=== PATIENT | female | born 1970 | race Caucasian/White ===

== ENCOUNTER → 2019-11-02 | Outpatient (CLI) | payer OTHER ==
[~2019-11-02] MED LIST: DHEA PO; Flomax0.4 MG PO; METF500 PO; Norco 5-325 Ta1 EACH PO; SERT100 PO
[2019-11-02 14:06] LABS: Alanine Aminotransfer (ALT/SGP 29 U/L (12-78); Albumin, Blood 3.7 g/dL (3.4-5.0); Albumin/Globulin Ratio 0.9 (0.8-1.8); Alk Phos 75 U/L (40-126); Anion Gap 6 mmol/L (6-16); Aspartate Aminotrans (AST/SGOT 20 U/L (12-37); Bilirubin, Total 0.2 mg/dL (0.1-1.0); Blood Urea Nitrogen 10 mg/dL (8-24); Bun/Creatinine Ratio 15.2 (12.0-20.0); CO2, Blood 28 mmol/L (21-32); Calcium, Blood 8.7 mg/dL (8.5-10.1); Chloride, Blood 105 mmol/L (98-108); Creatinine, Blood 0.66 mg/dL (0.40-1.00); Glomerular Filtration Rate >60 (60-); Glucose, Blood 91 mg/dL (70-99); Potassium, Blood 3.8 mmol/L (3.5-5.5); Sodium, Blood 139 mmol/L (136-145); Total Protein, Blood 7.7 g/dL (6.4-8.2)
== END | disposition home or self-care (01) ==
LOC: LAB SHORT 13:50 → LAB EV 13:50
PROVIDERS: Physician Assistant
DX: N20.0 Calculus of kidney (principal)
CPT/HCPCS: 80053

== ENCOUNTER 2019-12-01 18:59 | Emergency (ER) | payer OTHER ==
[~2019-12-01] VITALS: Ht 149.9 cm; Wt 74.8 kg
[2019-12-01 20:08] LABS: BASOPHILS ABSOLUTE AUTO 0.04 K/mm3 (0.00-0.23); BASOPHILS PERCENT AUTO 1 % (0-2); EOSINOPHILS ABSOLUTE AUTO 0.24 K/mm3 (0.00-0.68); EOSINOPHILS PERCENT AUTO 3 % (0-6); Hemoglobin 14.2 g/dL (11.5-16.0); IMMATURE GRAN ABSOLUTE AUTO 0.03 K/mm3 (0.00-0.10); IMMATURE GRAN PERCENT AUTO 0 % (0-1); LYMPHOCYTES ABSOLUTE AUTO 2.28 K/mm3 (0.84-5.20); LYMPHOCYTES PERCENT AUTO 27 % (21-46); MONOCYTES ABSOLUTE AUTO 0.57 K/mm3 (0.16-1.47); MONOCYTES PERCENT AUTO 7 % (4-13); Mean Corpuscular HGB 31.3 pg (26.0-34.0); Mean Corpuscular HGB Conc 33.8 g/dL (31.5-36.5); Mean Corpuscular Volume 93 fL (80-100); NEUTROPHILS ABSOLUTE AUTO 5.26 K/mm3 (1.96-9.15); NEUTROPHILS PERCENT AUTO 62 % (41-73); Platelet Count 291 K/mm3 (150-400); RDW Coefficient Variation 11.7 % (11.7-14.2); RDW Standard Deviation 39.8 fL (35.1-46.3); Red Blood Cell Count 4.53 M/mm3 (3.80-5.20); White Blood Cell Count 8.42 K/mm3 (4.00-11.30)
[2019-12-01 20:30] LABS: Alanine Aminotransfer (ALT/SGP 30 U/L (12-78); Albumin, Blood 4.2 g/dL (3.4-5.0); Alk Phos 81 U/L (50-136); Anion Gap 6 mmol/L (6-16); Aspartate Aminotrans (AST/SGOT 16 U/L (12-37); Bilirubin, Total 0.4 mg/dL (0.1-1.0); Blood Urea Nitrogen 12 mg/dL (8-24); Bun/Creatinine Ratio 14.3 (12.0-20.0); CO2, Blood 26 mmol/L (21-32); Calcium, Blood 9.2 mg/dL (8.5-10.1); Chloride, Blood 106 mmol/L (98-108); Creatinine, Blood 0.84 mg/dL (0.40-1.00); Globulin, Blood 4.2 g/dL (2.2-4.0); Glomerular Filtration Rate >60 (60-); Glucose, Blood 92 mg/dL (70-99); Potassium, Blood 4.2 mmol/L (3.5-5.5); Sodium, Blood 138 mmol/L (136-145); Total Protein, Blood 8.4 g/dL (6.4-8.2)
[2019-12-01 21:11] LABS: Source, Urine Clean Catch
[2019-12-01 21:17] LABS: Bilirubin, Urine Neg (Neg); Blood, Urine 5+ (Neg); Glucose Qualitative, Urine Neg (Neg); Ketones, Urine Neg (Neg); Leukocyte Esterase, Urine Neg (Neg); Nitrite, Urine Neg (Neg); Protein, Urine 2+ (Neg); Urobilinogen, Urine NORM (Normal)
[2019-12-01 21:22] LABS: Color, Urine Yellow (P-Yellow)
[2019-12-01 21:24] LABS: Appearance, Urine Hazy (Clear); Bacteria Few /hpf; Red Blood Cells, Urine TNTC /hpf (0-2); Squamous Epithelial Cells Mod /hpf (Few); White Blood Cells, Urine 0-2 /hpf (0-5)
== END 2019-12-02 02:00 | disposition home or self-care (01) ==
LOC: ER 18:59
PROVIDERS: Physician Assistant
DX: N13.1 Hydronephrosis with ureteral stricture, not elsewhere classified (principal); N23 Unspecified renal colic
CPT/HCPCS: 36415; 76770; 80053; 81001; 81025; 83690; 85025; 96374; 96375; 99284-25; J1170; J1885; J2405

== ENCOUNTER 2020-05-26 20:43 | Observation (INO) | payer OTHER ==
[~2020-05-26] VITALS: Ht 149.9 cm; Wt 75.0 kg
[2020-05-26 21:21] LABS: BASOPHILS ABSOLUTE AUTO 0.04 K/mm3 (0.00-0.23); BASOPHILS PERCENT AUTO 0 % (0-2); EOSINOPHILS ABSOLUTE AUTO 0.08 K/mm3 (0.00-0.68); EOSINOPHILS PERCENT AUTO 1 % (0-6); Hematocrit 43.2 % (33.0-51.0); Hemoglobin 14.5 g/dL (11.5-16.0); IMMATURE GRAN ABSOLUTE AUTO 0.04 K/mm3 (0.00-0.10); IMMATURE GRAN PERCENT AUTO 0 % (0-1); LYMPHOCYTES ABSOLUTE AUTO 2.03 K/mm3 (0.84-5.20); LYMPHOCYTES PERCENT AUTO 21 % (21-46); MONOCYTES ABSOLUTE AUTO 0.47 K/mm3 (0.16-1.47); MONOCYTES PERCENT AUTO 5 % (4-13); Mean Corpuscular HGB 31.7 pg (26.0-34.0); Mean Corpuscular HGB Conc 33.6 g/dL (31.5-36.5); Mean Corpuscular Volume 95 fL (80-100); Mean Platelet Volume 10.1 fL (9.1-12.4); NEUTROPHILS ABSOLUTE AUTO 6.89 K/mm3 (1.96-9.15); NEUTROPHILS PERCENT AUTO 72 % (41-73); Platelet Count 253 K/mm3 (150-400); RDW Coefficient Variation 11.9 % (11.7-14.2); RDW Standard Deviation 41.6 fL (35.1-46.3); Red Blood Cell Count 4.57 M/mm3 (3.80-5.20); White Blood Cell Count 9.55 K/mm3 (4.00-11.30)
[2020-05-26 21:40] LABS: Alanine Aminotransfer (ALT/SGP 29 U/L (12-78); Albumin, Blood 4.1 g/dL (3.4-5.0); Albumin/Globulin Ratio 0.9 (0.8-1.8); Alk Phos 87 U/L (50-136); Anion Gap 5 mmol/L (6-16); Aspartate Aminotrans (AST/SGOT 24 U/L (12-37); Bilirubin, Total 0.3 mg/dL (0.1-1.0); Blood Urea Nitrogen 13 mg/dL (8-24); Bun/Creatinine Ratio 17.5 (12.0-20.0); CO2, Blood 27 mmol/L (21-32); Calcium, Blood 9.3 mg/dL (8.5-10.1); Chloride, Blood 108 mmol/L (98-108); Creatinine, Blood 0.74 mg/dL (0.40-1.00); Globulin, Blood 4.4 g/dL (2.2-4.0); Glomerular Filtration Rate >60 (60-); Glucose, Blood 87 mg/dL (70-99); Potassium, Blood 4.3 mmol/L (3.5-5.5); Sodium, Blood 140 mmol/L (136-145); Total Protein, Blood 8.5 g/dL (6.4-8.2)
--- NOTE | 2020-05-27 06:25 | NUR ---
SHIFT SUMMARY RIB FX/PTX, A/O X4, VSS, WALKS W/ 1 PERSON ASSIST, PAIN WELL CONTROLLED PER EMAR, PT TAKING SHALLOW BREATHS, LUNGS CLEAR, SKIN PINK/WARM/DRY, DISTAL PULSES X4 EXTREMETIES STRONG, CAP REFIL < 3 SECONDS. PT ORIENTED TO ROOM AFTER ARRIVAL @ 0013, SO AT BEDSIDE FOR FIRST HOUR. PT REPORTS MILD NAUSEA, TREATED PER EMAR. SO TO RETURN IN THE MORNING, PT RESTING T/O REMAINING SHIFT. WILL CONTINUE TO MONITOR AND REPORT TO ONCOMING DAY RN.
[2020-05-27] MEDS ORDERED: PROG100 PO (10:32)
[2020-05-27] MEDS ORDERED: CLIMARA1 EACH TOP (10:33)
[2020-05-27] MEDS ORDERED: Adipex-P37.5 MG PO (10:33)
--- NOTE | 2020-05-27 14:31 | NUR ---
PT REPORTED SMALL PIECES OF SEDIMENT/STONES IN URINE HAS HX OF KIDNEY STONES BUT DENIES PAIN ASSOCIATED W/PREVIOUS STONES. STATED LANDED IN [place] SO DOES NOT KNOW IF KIDNEY STONES OR SEDIMENT FROM FALL. WILL CONTINUE TO MONITOR.
--- NOTE | 2020-05-27 18:03 | NUR ---
SUMMARY NO ACUTE CHANGES T/O SHIFT. PT UP TO RESTROOM TO MINIMAL ASSISTANCE. TOLERATING DIET. MEDICATED PER ORDERS T/O SHIFT FOR PAIN. PT HAD REPORTED DID NOT KNOW IF PASSING KIDNEY STONES IN URINE OR HAD SAND IN CLOTHING THAT FELL IN COLLECTION HAT. RN NOTED COUPLE SMALL PIECES OF SEDIMENT; PT DENYING PAIN ASSOCIATED W/KIDNEY STONES. SPOUSE HAS BEEN AT BEDSIDE T/O MOST OF SHIFT. PT CALL APPROPRIATELY. CALL LIGHT IN REACH.
--- NOTE | 2020-05-28 05:24 | NUR ---
SHIFT SUMMARY RIB FX, A/O X4, VSS, TAKING SHALLOW BREATHS, SKIN PINK/WARM/DRY, CAP REFIL < 3 SEC, DENIES SOB, REPORTS INCREASED PAIN ON DEEP INSPIRATION. PAIN WELL CONTROLLED PER EMAR, DENIES N&V/N&T. PT REP FEELING BLOATED, GAVE K PACK TO APPLY HEAT THERAPY TO ABD PRN. PT RESTING COMFORTABLY T/O SHIFT, TOLERATING PO, VOIDING WELL. WILL CONTINUE TO MONITOR AND REPORT TO ONCOMING DAY RN.
[2020-05-28] MEDS ORDERED: HYDR1TAB94 PO (11:00)
--- NOTE | 2020-05-28 11:27 | NUR ---
DISCHARGE PT EDUCATED ON AND RECEIVED PRINTED DISCHARGE INSTRUCTIONS AND VERBALIZED AN UNDERSTANDING. HARD RX FOR [place]CO GIVEN TO PT. IV DC'D. PT LEFT WITH ALL PERSONAL BELONGINGS INCLUDING I/S WITH AT SIDE.
== END 2020-05-28 11:23 | disposition home or self-care (01) ==
LOC: ER 20:43 → SURS 20:44
PROVIDERS: Emergency Medicine; ADMIT Surgery
DX: S27.0XXA Traumatic pneumothorax, initial encounter (principal); S22.42XA Multiple fractures of ribs, left side, initial encounter for closed fracture; V80.010A Animal-rider injured by fall from or being thrown from horse in noncollision accident, initial encounter; Z88.5 Allergy status to narcotic agent
CPT/HCPCS: 36415; 71045; 71046; 71260; 80053; 85025; 96361; 96372; 96374; 96375; 96376; 99285-25; A9270-GY; G0378; J1170; J1650; J1885; J2405; J7120; Q9967

== ENCOUNTER 2020-10-29 01:15 | Emergency (ER) | payer OTHER ==
[~2020-10-29] VITALS: Ht 149.9 cm; Wt 74.8 kg
[~2020-10-29 01:15] MED LIST changes: +Adipex-P37.5 MG PO; +CLIMARA1 EACH TOP; +HYDR1TAB94 PO; +PROG100 PO
[2020-10-29] MEDS ORDERED: HYDR1TAB94 PO (03:16)
[2020-10-29] MEDS ORDERED: Colace250 MG PO (03:16)
[2020-10-29] MEDS ORDERED: AMOCLA875 PO (03:16)
== END 2020-10-29 03:34 | disposition home or self-care (01) ==
LOC: ER 01:15
DX: K04.7 Periapical abscess without sinus (principal); Z79.899 Other long term (current) drug therapy
CPT/HCPCS: 96372; 99282-25; J2270

== ENCOUNTER 2021-01-10 15:10 | Emergency (ER) | payer OTHER ==
[~2021-01-10] VITALS: Ht 149.9 cm; Wt 72.6 kg
[~2021-01-10 15:10] MED LIST changes: -HYDPAM25 PO
[2021-01-10] MEDS ORDERED: HYDPAM25 PO (16:16)
== END 2021-01-10 17:13 | disposition home or self-care (01) ==
LOC: ER 15:10
DX: R51.9 Headache, unspecified (principal); R20.2 Paresthesia of skin; Z88.5 Allergy status to narcotic agent; Z79.899 Other long term (current) drug therapy
CPT/HCPCS: 36415; 99283; A9270

== ENCOUNTER → 2021-01-10 | Outpatient (CLI) | payer OTHER ==
[~2021-01-10] MED LIST changes: +AMOCLA875 PO; +Colace250 MG PO; +HYDPAM25 PO
[2021-01-10 14:42] LABS: BASOPHILS ABSOLUTE AUTO 0.04 K/mm3 (0.00-0.23); BASOPHILS PERCENT AUTO 1 % (0-2); EOSINOPHILS ABSOLUTE AUTO 0.38 K/mm3 (0.00-0.68); EOSINOPHILS PERCENT AUTO 5 % (0-6); Hematocrit 43.1 % (33.0-51.0); Hemoglobin 14.5 g/dL (11.5-16.0); IMMATURE GRAN ABSOLUTE AUTO 0.03 K/mm3 (0.00-0.10); IMMATURE GRAN PERCENT AUTO 0 % (0-1); LYMPHOCYTES PERCENT AUTO 36 % (21-46); MONOCYTES ABSOLUTE AUTO 0.41 K/mm3 (0.16-1.47); MONOCYTES PERCENT AUTO 6 % (4-13); Mean Corpuscular HGB 31.8 pg (26.0-34.0); Mean Corpuscular HGB Conc 33.6 g/dL (31.5-36.5); Mean Corpuscular Volume 95 fL (80-100); Mean Platelet Volume 10.5 fL (9.1-12.4); NEUTROPHILS ABSOLUTE AUTO 3.78 K/mm3 (1.96-9.15); NEUTROPHILS PERCENT AUTO 52 % (41-73); Platelet Count 259 K/mm3 (150-400); RDW Coefficient Variation 12.5 % (11.7-14.2); RDW Standard Deviation 43.4 fL (35.1-46.3); Red Blood Cell Count 4.56 M/mm3 (3.80-5.20); White Blood Cell Count 7.24 K/mm3 (4.00-11.30)
[2021-01-10 14:45] LABS: Anion Gap 8 mmol/L (6-16); Blood Urea Nitrogen 12 mg/dL (8-24); CO2, Blood 28 mmol/L (21-32); Calcium, Blood 8.3 mg/dL (8.5-10.1); Chloride, Blood 104 mmol/L (98-108); Creatinine, Blood 0.75 mg/dL (0.40-1.00); Glomerular Filtration Rate >60 (60-); Glucose, Blood 106 mg/dL (70-99); Potassium, Blood 3.2 mmol/L (3.5-5.5); Sodium, Blood 140 mmol/L (136-145)
== END | disposition home or self-care (01) ==
LOC: LAB SHORT 14:35
PROVIDERS: Family Medicine
DX: R53.83 Other fatigue (principal)
CPT/HCPCS: 80048; 85025; 85651

== ENCOUNTER 2023-04-12 14:53 | Emergency (ER) | payer OTHER ==
[~2023-04-12] VITALS: Ht 149.9 cm; Wt 77.1 kg
[~2023-04-12 14:53] MED LIST changes: +HYDPAM25 PO
[2023-04-12] MEDS ORDERED: VENLAFAXINE (15:11)
[2023-04-12] MEDS ORDERED: Aspirin EC81 MG PO (16:11)
[2023-04-12 16:20] VITALS: BP 130/82
== END 2023-04-12 16:22 | disposition home or self-care (01) ==
LOC: ER 14:53
DX: H53.143 Visual discomfort, bilateral (principal); Z88.8 Allergy status to other drugs, medicaments and biological substances; Z79.2 Long term (current) use of antibiotics; Z79.890 Hormone replacement therapy; Z86.73 Personal history of transient ischemic attack (TIA), and cerebral infarction without residual deficits; Z87.442 Personal history of urinary calculi; Z95.5 Presence of coronary angioplasty implant and graft
CPT/HCPCS: 93005; 93010; 99284-25; A9270

== ENCOUNTER 2023-11-11 21:24 | Emergency (ER) | payer OTHER ==
[~2023-11-11] VITALS: Ht 149.9 cm; Wt 77.1 kg
[~2023-11-11 21:24] MED LIST changes: +Aspirin EC81 MG PO; +VENLAFAXINE
[2023-11-11] MEDS ORDERED: Famotidine 20 MG Tab PO ONE (21:55)
[2023-11-11] MEDS ORDERED: DiphenhydrAMINE HCl 50 MG Cap PO ONE ×2 (21:55→23:15)
[2023-11-11] MEDS ORDERED: Triamcinolone Inj Susp 40 MG / ML 1ML Vial IM ONE (23:25)
[2023-11-11 23:30] VITALS: BP 136/83
== END 2023-11-11 23:37 | disposition home or self-care (01) ==
LOC: ER 21:24
DX: L50.9 Urticaria, unspecified (principal); Z79.899 Other long term (current) drug therapy; Z88.8 Allergy status to other drugs, medicaments and biological substances
CPT/HCPCS: 96372; 99282-25; A9270; J3301

== ENCOUNTER → 2025-02-28 | Outpatient (CLI) | payer OTHER ==
[2025-02-28 20:35] LABS: Candida Group, PCR NOT DETECTED (NOT DETECT); Candida glabrata-krusei, PCR NOT DETECTED (NOT DETECT)
[2025-02-28 23:15] LABS: Bacterial Vaginosis PCR Positive (NEGATIVE)
== END | disposition home or self-care (01) ==
LOC: LAB 17:38 → LAB SHORT 17:38
PROVIDERS: Physician Assistant
DX: N89.8 Other specified noninflammatory disorders of vagina (principal)
CPT/HCPCS: 81515

== ENCOUNTER → 2025-08-25 | Outpatient (CLI) | payer OTHER ==
[2025-08-25 20:23] LABS: Candida Group, PCR NOT DETECTED (NOT DETECT); Candida glabrata-krusei, PCR NOT DETECTED (NOT DETECT)
[2025-08-25 20:30] LABS: Bacterial Vaginosis PCR Positive (NEGATIVE)
== END ==
LOC: LAB 17:50 → LAB SHORT 17:50
PROVIDERS: Physician Assistant
DX: N89.8 Other specified noninflammatory disorders of vagina (principal)
CPT/HCPCS: 81515

== ENCOUNTER 2025-09-15 08:51 | Emergency (ER) | payer OTHER ==
[~2025-09-15] VITALS: Ht 149.9 cm; Wt 63.5 kg
[2025-09-15 09:16] VITALS: BP 142/110
[2025-09-15] MEDS ORDERED: OxyCODONE 5 mg/Acetamin 325 mg TABLET PO ONE (09:25)
[2025-09-15] MEDS ORDERED: Percocet 5-3251 EACH PO (09:43)
== END 2025-09-15 11:36 | disposition left against medical advice (07) ==
LOC: ER 08:51
DX: M25.512 Pain in left shoulder (principal); Z53.21 Procedure and treatment not carried out due to patient leaving prior to being seen by health care provider